=== PATIENT | male | born 1935 | race Caucasian/White ===

== ENCOUNTER → 2019-07-06 | Outpatient (CLI) | payer OTHER, MEDICARE ==
--- NOTE | 2019-07-07 13:24 | RADIOLOGY REPORT (SQ) ---
EXAM DESCRIPTION: U/S RETROPERITON (RENAL/AORTA) IMAGES COMPLETED DATE/TIME: 07/06/2019 12:33 pm REASON FOR STUDY: N18.3 CHRONIC KIDNEY DISEASE, STAGE 3 (MODERATE) N18.3 CHRONIC KIDNEY DISEASE, ST AGE 3 (MODERATE) I12.9 HYPERTENSIVE CHRONIC KIDNEY DISEASE W STG 1-4/UNSP CHR COMPARISON: None. TECHNIQUE: Dynamic and static grayscale images acquired of the kidneys and bladder and recorded on P ACS. Additional selected color Doppler and spectral images recorded. LIMITATIONS: Large patient, bladder decompressed FINDINGS: RIGHT KIDNEY: Normal size, 10 cm in length. Mild cortical thinning and increased echogeni [place] from medical renal disease. 2 cm cyst. No solid or suspicious masses. No hydronephrosis. No ca lcifications. LEFT KIDNEY: Normal size, 13 cm in length. Mild cortical thinning and increased echogenicity from m edical renal disease. No solid or suspicious masses. No hydronephrosis. No calcifications. BLADDER: No masses. Bladder decompressed OTHER FINDINGS: No other significant finding. IMPRESSION: No hydronephrosis. TECHNICAL DOCUMENTATION: JOB ID: [id number] 2010 [employer]- All Rights Reserved Reading location - IP/workstation name: [id number]
== END ==
LOC: RAD 12:01
PROVIDERS: ATTEND Internal Medicine Nephrology
DX: I12.9 Hypertensive chronic kidney disease with stage 1 through stage 4 chronic kidney disease, or unspecified chronic kidney disease (principal); N18.3 Chronic kidney disease, stage 3 (moderate); N28.1 Cyst of kidney, acquired
CPT/HCPCS: 76770

== ENCOUNTER → 2019-12-28 | Outpatient (CLI) | payer MEDICARE ==
--- NOTE | 2019-12-28 14:28 | RADIOLOGY REPORT (SQ) ---
EXAM DESCRIPTION: CT CHEST WITHOUT IMAGES COMPLETED DATE/TIME: 12/28/2019 1:28 pm REASON FOR STUDY: (J47.9)BRONCHIECTASIS, UNCOMPLICATED J47.9 BRONCHIECTASIS, UNCOMPLICATED COMPARISON: None. TECHNIQUE: CT scan performed of the chest without intravenous contrast. Images reviewed with lung, soft tissue and bone windows. Reconstructed coronal and sagittal MPR images reviewed. All images st ored on PACS. All CT scanners at this facility use dose modulation, iterative reconstruction, and/or weight based d osing when appropriate to reduce radiation dose to as low as reasonably achievable (ALARA). [facility]: Dose Right [facility]: CareDose [facility]: Dose Right [facility]: Teradose 4D [facility]: [employer] RADIATION DOSE: CT Rad equipment meets quality standard of care and radiation dose reduction techniq ues were employed. CTDIvol: 10.8 mGy. DLP: 442 mGy-cm. mGy. LIMITATIONS: No technical limitations. FINDINGS: LUNGS AND PLEURA: Mild centrilobular emphysematous change. 2 solid left-sided pulmonary n odules. There is a 2 cm lesion in the lingula. There is a 1.4 cm lesion in the left base medially. No consolidation. Probable scarring in the periphery of the left upper lobe. There is right basila r atelectasis. There is mild central bronchiectasis. HILAR AND MEDIASTINAL STRUCTURES: No identified masses or abnormal nodes. No obvious aneurysm. HEART AND VASCULAR STRUCTURES: Slight pericardial thickening and/or small pericardial effusion. UPPER ABDOMEN: Bosniak type 2 left renal cyst. THYROID AND OTHER SOFT TISSUES: No masses. No adenopathy. BONES: No significant finding. HARDWARE: None in the chest. OTHER: No other significant findings. IMPRESSION: 1. 2 solid nodules on the left. 1 in the left upper lobe adjacent to the left heart lori rder measured at approximately 2 cm. There is a 2nd 1.4 cm lesion in the left medial base. Recommen d PET-CT for further evaluation. 2. Mild centrilobular emphysematous changes. There is central bronchiectasis. TECHNICAL DOCUMENTATION: JOB ID: [id number] Quality ID # [id number]: Final reports with documentation of one or more dose reduction techniques (e.g., Au tomated exposure control, adjustment of the mA and/or kV according to patient size, use of iterative reconstruction technique) 2010 [employer]- All Rights Reserved Reading location - IP/workstation name: [email or web address]
== END ==
LOC: RAD 12:47
PROVIDERS: ATTEND Registered Nurse
DX: J47.9 Bronchiectasis, uncomplicated (principal); J43.2 Centrilobular emphysema; R91.8 Other nonspecific abnormal finding of lung field
CPT/HCPCS: 71250

== ENCOUNTER → 2020-01-05 | Outpatient (CLI) | payer MEDICARE ==
--- NOTE | 2020-01-08 16:07 | RADIOLOGY REPORT (SQ) ---
EXAM DESCRIPTION: PET CT SKULL/THIGH IMAGES COMPLETED DATE/TIME: 01/05/2020 2:17 pm REASON FOR STUDY: R91.1 SOLITARY PULMONARY NODULE R91.1 SOLITARY PULMONARY NODULE COMPARISON: CT chest dated 12/28/2019 RADIONUCLIDE AND DOSE: 11.16 mCi F18 FDG The route of agent administration: Intravenous FASTING BLOOD SUGAR: 96 mg/dl CONTRAST TYPE AND DOSE: No CT contrast given. TECHNIQUE: Blood glucose level was verified. Above dose of FDG was injected intravenously. 2-D seg mented attenuation correction images were obtained from the base of the skull to the midthighs. Nonc ontrast CT images were obtained for attenuation correction and fusion with emission images. CT image s were performed without oral or intravenous contrast and are not sensitive for parenchymal lesions. A series of overlapping emission PET images were obtained. Images reviewed and manipulated at [facility] work station by the radiologist. Images stored on PACS. LIMITATIONS: None. FINDINGS: HEAD AND NECK: Abnormal uptake in the neck at the level of the true cords. There is no so ft tissue abnormality but SUV is 5.1 suspect this is physiologic. Direct visualization is recommende d if clinically indicated. CHEST: No abnormal uptake in the 2 cm ribs mass adjacent to the left heart border. There is activity in the smaller nodule in the left base. SUV is 2.4. This is nonspecific. Recommend continued CT s urveillance. ABDOMEN AND PELVIS: No areas of abnormal metabolic activity in the abdomen or pelvis. Expected physi ologic activity is present in the genitourinary system and bowel. PROXIMAL LOWER EXTREMITIES: No areas of abnormal metabolic activity in the soft tissues of the lower extremities. BONES: No abnormal metabolic activity in the visualized skeleton. ADDITIONAL CT FINDINGS: No additional significant findings on the noncontrast CT images. OTHER: No other significant findings. IMPRESSION: 1. No abnormal uptake in the 2 cm mass adjacent to the left heart border. This most li irma represents benign process. 2. SUV in the small left lower lobe pulmonary nodule is 2.4. The nodule measures 1.2 cm in size wit h neoplasm a higher SUV would be expected. 3. Uptake at the level of the true cords posteriorly is nonspecific most likely physiologic. No cor responding CT abnormality although the SUV is 5.1. TECHNICAL DOCUMENTATION: JOB ID: [id number] 2010 [employer]- All Rights Reserved Reading location - IP/workstation name: [email or web address]
== END ==
LOC: RAD 12:22
PROVIDERS: ATTEND Registered Nurse
DX: R91.1 Solitary pulmonary nodule (principal)
CPT/HCPCS: 78815; A9552